=== PATIENT | male | born 1990 ===

== ENCOUNTER 2021-01-14 23:59 | Emergency (ER) | payer SELFPAY ==
[~2021-01-14] VITALS: Ht 175.3 cm; Wt 79.4 kg
[2021-01-15] MEDS ORDERED: LIDOCAINE 1% HCL (LOCAL ANESTH.) INJ 20ML MDV ID ONE (05:00)
[2021-01-15] MEDS ORDERED: NEOMYCIN-BACITRACIN-POLYM UNITDOSE PKG TOP OINT TOP ONE (05:00)
[2021-01-15 07:59] VITALS: BP 113/69
== END 2021-01-15 06:28 | disposition home or self-care (01) ==
LOC: EDSEX 23:59 → ER 23:59
DX: S61.211A Laceration without foreign body of left index finger without damage to nail, initial encounter (principal); W26.8XXA Contact with other sharp object(s), not elsewhere classified, initial encounter; Y93.89 Activity, other specified; Y92.89 Other specified places as the place of occurrence of the external cause; Y99.8 Other external cause status
CPT/HCPCS: 12001; 99283; J2001